=== PATIENT | female | born 1945 | race Caucasian/White ===

== ENCOUNTER 2018-01-01 13:01 | Emergency (ER) | payer SELFPAY ==
--- NOTE | 2018-01-01 13:54 | UC ---
Complaint Female HPI - HPI Summary HPI Summary: ONSET OF URINARY PRESSURE, FREQUENCY AND HEMATURIA YESTERDAY. NO FEVER, NAUSEA OR LOW BACK PAIN. - History Of Current Complaint Chief Complaint: [facility]CG[facility] Stated Complaint: URINARY ISSUE Time Seen by Provider: 01/01/18 13:22 Hx Obtained From: Patient Onset/Duration: Gradual Onset, Lasting Days, Still Present Timing: Constant Severity Initially: Moderate Severity Currently: Moderate Pain Intensity: 2 Pain Scale Used: 0-10 Numeric Character: Burning Aggravating Factor(s): Urination Alleviating Factor(s): Nothing Associated Signs And Symptoms: Negative: Fever, Back Pain, Vaginal Discharge, Nausea - Allergies/Home Medications Allergies/Adverse Reactions: Allergies Allergy/AdvReac Type Severity Reaction Status Date / Time Penicillins Allergy See Comment Verified 01/01/18 13:21 Home Medications: Home Medications Aspirin TAB* [Aspirin 325 MG TAB*] 325 mg PO DAILY 01/01/18 [History Confirmed 01/01/18] PMH/Surg Hx/FS Hx/Imm Hx Previously Healthy: Yes - Surgical History Surgical History: Yes Surgery Procedure, Year, and Place: barthalon cyst removed - Family History Known Family History: Negative: Hypertension - Social History Alcohol Use: Occasionally Substance Use Type: None Smoking Status (MU): Former Smoker Review of Systems Constitutional: Negative Respiratory: Negative Cardiovascular: Negative Gastrointestinal: Negative Genitourinary: Dysuria, Hematuria, Frequency, Urgency All Other Systems Reviewed And Are Negative: Yes Physical Exam Triage Information Reviewed: Yes Appearance: Well-Appearing, No Pain Distress, Well-Nourished Vital Signs: Initial Vital Signs Temp 98.6 F 01/01/18 13:18 Pulse 65 01/01/18 13:18 Resp 18 01/01/18 13:18 BP 168/68 01/01/18 13:18 Pulse Ox 100 01/01/18 13:18 Vital Signs Reviewed: Yes Eyes: Positive: Conjunctiva Clear ENT: Positive: Hearing grossly normal Neck: Positive: Supple Respiratory: Positive: No respiratory distress, No accessory muscle use Cardiovascular: Positive: Pulses Normal Abdomen Description: Positive: Nontender, Soft. Negative: CVA Tenderness (R), CVA Tenderness (L), Distended, Guarding Musculoskeletal: Positive: No Edema Neurological: Positive: Alert Psychological: Positive: Age Appropriate Behavior Skin: Negative: rashes Diagnostics - Laboratory Diagnostic Studies Completed/Ordered: URINE DIP SP.GR. 1.005, 3+ BLOOD, 2+ PROTEIN, 1+ LEUKS Complaint Female Dx - Differential Dx/Diagnosis Provider Diagnoses: UTI Discharge - Sign-Out/Discharge Documenting (check all that apply): Discharge/Admit/Transfer - Discharge Plan Condition: Stable Disposition: HOME Prescriptions: Sulfamethox/Trimethoprim DS* [Bactrim DS 800/160 TAB*] 1 tab PO BID #10 tab Patient Education Materials: Urinary Tract Infection in Women (ED) Referrals: No Primary Care Phys,NOPCP [Primary Care Provider] - Additional Instructions: CALL THE NUMBER BELOW FOR ASSISTANCE IN ESTABLISHING WITH A PCP An additional resource available to assist in finding the appropriate physician for your health care needs is [facility] ([facility]). You may contact them by calling [phone]. - Billing Disposition and Condition Condition: STABLE Disposition: Home
--- NOTE | 2018-01-03 15:35 | UC ---
- Progress Note Progress Note: please notify patient no UTI stop antibiotic see primary care if still symptomatic Discharge - Sign-Out/Discharge Documenting (check all that apply): Post-Discharge Follow Up - Discharge Plan Condition: Stable Disposition: HOME Prescriptions: Sulfamethox/Trimethoprim DS* [Bactrim DS 800/160 TAB*] 1 tab PO BID #10 tab Patient Education Materials: Urinary Tract Infection in Women (ED) Referrals: No Primary Care Phys,NOPCP [Primary Care Provider] - Additional Instructions: CALL THE NUMBER BELOW FOR ASSISTANCE IN ESTABLISHING WITH A PCP An additional resource available to assist in finding the appropriate physician for your health care needs is [facility] ([facility]). You may contact them by calling [phone]. - Billing Disposition and Condition Condition: STABLE Disposition: Home
== END 2018-01-01 13:59 | disposition home or self-care (01) ==
LOC: UCEAST 13:01
DX: N39.0 Urinary tract infection, site not specified (principal); R31.9 Hematuria, unspecified; Z88.0 Allergy status to penicillin; Z87.891 Personal history of nicotine dependence
CPT/HCPCS: 81003; 87086; 99202; G0463

== ENCOUNTER 2023-10-19 09:25 | Inpatient (IN) ==
[2023-10-19] MEDS: HYDROcodone/ACETAMIN 5/325 mg TAB PO PRN (20:52)
[2023-10-20] MEDS: Enoxaparin 40 MG/0.4 ML SYR SUBCUT SCH (08:46)
[2023-10-21 05:45] LABS: ABS Eosinophils 0.1 10^3/uL (0.0-0.5); ABS Lymphocytes 1.1 10^3/uL (1.0-4.8); ABS Monocytes 0.5 10^3/uL (0.0-0.9); ABS Neutrophils 4.1 10^3/uL (1.5-7.6); ABS Nucleated RBC 0.01 10^3/ul; Eosinophil % 1.9 %; Hematocrit 24.9 % (35-45); Hemoglobin 8.4 g/dL (11.5-14.3); Lymphocyte % 19.1 %; Mean Corpuscular Hemoglobin 29.2 pg (27-33); Mean Corpuscular Hgb Conc 33.8 g/dL (31-36); Mean Corpuscular Volume 86.3 fL (80-97); Mean Platelet Volume 6.2 fL (7.5-11.2); Nucleated Red Blood Cells % 0.1 %/100WBC (0.0-0.8); Platelet Count 474 10^3/uL (150-450); Red Blood Count 2.89 10^6/uL (3.63-4.92); Red Cell Distribution Width 15.2 % (12-17); White Blood Count 5.8 10^3/uL (3.8-11.8)
[2023-10-22 06:52] LABS: ABS Eosinophils 0.2 10^3/uL (0.0-0.5); ABS Lymphocytes 1.3 10^3/uL (1.0-4.8); ABS Monocytes 0.6 10^3/uL (0.0-0.9); ABS Nucleated RBC 0.01 10^3/ul; Eosinophil % 2.1 %; Hematocrit 25.6 % (35-45); Hemoglobin 8.7 g/dL (11.5-14.3); Lymphocyte % 18.3 %; Mean Corpuscular Hemoglobin 29.1 pg (27-33); Mean Corpuscular Volume 85.7 fL (80-97); Nucleated Red Blood Cells % 0.2 %/100WBC (0.0-0.8); Platelet Count 483 10^3/uL (150-450); Red Blood Count 2.99 10^6/uL (3.63-4.92); Red Cell Distribution Width 15.3 % (12-17); White Blood Count 7.1 10^3/uL (3.8-11.8)
[2023-10-22 07:57] LABS: Albumin 3.1 g/dL (3.2-5.2); Albumin/Globulin Ratio 1.1 (1-3); Calcium 8.6 mg/dL (8.6-10.3); Creatinine, Serum 0.64 mg/dL (0.51-0.95); Globulin 2.9 g/dL (2-4); Potassium 3.9 mmol/L (3.5-5.0); Total Bilirubin 0.7 mg/dL (0.2-1.0)
[2023-10-23] MEDS: Senna TAB 8.6 mg TAB PO PRN (20:21)
[2023-10-24] MEDS: HYDROcodone/ACETAMIN 5/325 mg TAB PO PRN (10:12)
[2023-10-26] MEDS: Magnesium Hydroxide LIQ 30 ML UDC PO PRN (16:31)
[2023-10-29 06:44] LABS: ABS Eosinophils 0.1 10^3/uL (0.0-0.5); ABS Lymphocytes 1.1 10^3/uL (1.0-4.8); ABS Monocytes 0.5 10^3/uL (0.0-0.9); ABS Neutrophils 2.2 10^3/uL (1.5-7.6); Eosinophil % 3.2 %; Hematocrit 28.5 % (35-45); Hemoglobin 9.5 g/dL (11.5-14.3); Lymphocyte % 27.9 %; Mean Corpuscular Hemoglobin 28.8 pg (27-33); Mean Corpuscular Hgb Conc 33.3 g/dL (31-36); Mean Corpuscular Volume 86.4 fL (80-97); Mean Platelet Volume 6.1 fL (7.5-11.2); Nucleated Red Blood Cells % 0.1 %/100WBC (0.0-0.8); Platelet Count 489 10^3/uL (150-450); Red Blood Count 3.29 10^6/uL (3.63-4.92); White Blood Count 4.1 10^3/uL (3.8-11.8)
[2023-10-29 08:00] LABS: Albumin 3.2 g/dL (3.2-5.2); Albumin/Globulin Ratio 1.1 (1-3); Calcium 8.7 mg/dL (8.6-10.3); Creatinine, Serum 0.72 mg/dL (0.51-0.95); Globulin 2.8 g/dL (2-4); Potassium 4.6 mmol/L (3.5-5.0); Total Bilirubin 0.4 mg/dL (0.2-1.0); eGFR CKD-EPI 86.1 (>60)
[2023-11-05 07:00] LABS: ABS Eosinophils 0.1 10^3/uL (0.0-0.5); ABS Lymphocytes 1.3 10^3/uL (1.0-4.8); ABS Monocytes 0.4 10^3/uL (0.0-0.9); ABS Neutrophils 1.6 10^3/uL (1.5-7.6); ABS Nucleated RBC 0.01 10^3/ul; Eosinophil % 2.3 %; Hematocrit 30.6 % (35-45); Hemoglobin 10.3 g/dL (11.5-14.3); Lymphocyte % 37.8 %; Mean Corpuscular Hemoglobin 29.1 pg (27-33); Mean Corpuscular Hgb Conc 33.8 g/dL (31-36); Mean Corpuscular Volume 85.9 fL (80-97); Mean Platelet Volume 6.4 fL (7.5-11.2); Nucleated Red Blood Cells % 0.3 %/100WBC (0.0-0.8); Platelet Count 300 10^3/uL (150-450); Red Blood Count 3.55 10^6/uL (3.63-4.92); Red Cell Distribution Width 15.4 % (12-17); White Blood Count 3.5 10^3/uL (3.8-11.8)
[2023-11-05 07:50] LABS: Albumin 3.5 g/dL (3.2-5.2); Albumin/Globulin Ratio 1.3 (1-3); Calcium 9.1 mg/dL (8.6-10.3); Creatinine, Serum 0.76 mg/dL (0.51-0.95); Globulin 2.7 g/dL (2-4); Potassium 4.5 mmol/L (3.5-5.0); Total Bilirubin 0.4 mg/dL (0.2-1.0); Total Protein 6.2 g/dL (6.4-8.9); eGFR CKD-EPI 80.7 (>60)
[2023-11-06 09:53] VITALS: BP 135/73
== END 2023-11-06 14:30 | disposition home or self-care (01) | DRG 860 ==
LOC: PMRU 12:27
PROVIDERS: ADMIT Physical Medicine & Rehabilitation; ATTEND Physical Medicine & Rehabilitation

== ENCOUNTER 2023-11-29 15:05 | Inpatient (IN) ==
[2023-11-29 16:12] LABS: ABS Eosinophils 0.1 10^3/uL (0.0-0.5); ABS Lymphocytes 0.9 10^3/uL (1.0-4.8); ABS Monocytes 0.4 10^3/uL (0.0-0.9); ABS Neutrophils 4.1 10^3/uL (1.5-7.6); ABS Nucleated RBC 0.01 10^3/ul; Eosinophil % 1.3 %; Hematocrit 32.2 % (35-45); Hemoglobin 10.6 g/dL (11.5-14.3); Lymphocyte % 17.1 %; Mean Corpuscular Hemoglobin 27.6 pg (27-33); Mean Corpuscular Volume 83.8 fL (80-97); Mean Platelet Volume 6.6 fL (7.5-11.2); Nucleated Red Blood Cells % 0.2 %/100WBC (0.0-0.8); Platelet Count 373 10^3/uL (150-450); Red Blood Count 3.85 10^6/uL (3.63-4.92); Red Cell Distribution Width 14.9 % (12-17); White Blood Count 5.5 10^3/uL (3.8-11.8)
[2023-11-29 17:25] LABS: Albumin 3.5 g/dL (3.2-5.2); Albumin/Globulin Ratio 1.1 (1-3); Calcium 9.1 mg/dL (8.6-10.3); Creatinine, Serum 0.8 mg/dL (0.51-0.95); Globulin 3.1 g/dL (2-4); Potassium 3.8 mmol/L (3.5-5.0); Total Bilirubin 0.4 mg/dL (0.2-1.0); Total Protein 6.6 g/dL (6.4-8.9); eGFR CKD-EPI 75.8 (>60)
[2023-11-29] MEDS: hydrALAZINE 20 mg/ml 1 ML Vial IV IV SLOW PU ONE (20:34)
[2023-11-29] MEDS: Labetalol IV 5 MG/ML 20 ml VIAL IV PUSH ONE ×2 (21:31→22:52)
[2023-11-30] MEDS: Labetalol IV 5 MG/ML 20 ml VIAL IV PUSH ONE
[2023-11-30] MEDS: niCARdipine 0.1MG/ML IVPREMIX 20 MG/200 ML BAG IV SCH (01:04)
[2023-11-30 01:43] LABS: High Sensitivity Troponin 1 Hr 12 pg/mL (<15)
[2023-11-30 05:13] LABS: ABS Eosinophils 0.1 10^3/uL (0.0-0.5); ABS Lymphocytes 1.2 10^3/uL (1.0-4.8); ABS Monocytes 0.4 10^3/uL (0.0-0.9); ABS Neutrophils 3.7 10^3/uL (1.5-7.6); ABS Nucleated RBC 0.01 10^3/ul; Hematocrit 31.5 % (35-45); Hemoglobin 10.5 g/dL (11.5-14.3); Lymphocyte % 22.2 %; Mean Corpuscular Hemoglobin 27.7 pg (27-33); Mean Corpuscular Hgb Conc 33.3 g/dL (31-36); Mean Corpuscular Volume 83.3 fL (80-97); Mean Platelet Volume 6.5 fL (7.5-11.2); Nucleated Red Blood Cells % 0.2 %/100WBC (0.0-0.8); Platelet Count 362 10^3/uL (150-450); Red Blood Count 3.78 10^6/uL (3.63-4.92); Red Cell Distribution Width 14.6 % (12-17); White Blood Count 5.4 10^3/uL (3.8-11.8)
[2023-11-30 05:45] LABS: Calcium 9.1 mg/dL (8.6-10.3); Creatinine, Serum 0.61 mg/dL (0.51-0.95); Magnesium 1.7 mg/dL (1.9-2.7); Potassium 3.8 mmol/L (3.5-5.0)
[2023-11-30 06:15] LABS: Urine Appearance Clear; Urine Bilirubin Negative (Negative); Urine Blood Negative (Negative); Urine Color Colorless; Urine Glucose Negative (Negative); Urine Ketones 1+ (Negative); Urine Nitrite Negative (Negative); Urine Protein Negative (Negative); Urine Specific Gravity 1.008 (1.002-1.030); Urine Urobilinogen Negative (Negative)
[2023-11-30] MEDS: Magnesium Sulfate 2 gm BAG 2 GM/50 ML BAG IVPB ONE (07:24)
[2023-11-30] MEDS: Enoxaparin 40 MG/0.4 ML SYR SUBCUT SCH (07:44)
[2023-11-30] MEDS ORDERED: Senna TAB 8.6 mg TAB PO PRN (10:22)
[2023-11-30] MEDS: Ondansetron 4 mg VIAL 2 MG/ML 2 ml VIAL IV ONE (10:47)
[2023-11-30] MEDS: Labetalol IV 5 MG/ML 20 ml VIAL IV PUSH PRN (13:35)
[2023-11-30] MEDS ORDERED: Labetalol IV 5 MG/ML 20 ml VIAL IV PUSH PRN (18:02)
[2023-12-01 04:48] LABS: ABS Eosinophils 0.1 10^3/uL (0.0-0.5); ABS Lymphocytes 1.5 10^3/uL (1.0-4.8); ABS Monocytes 0.5 10^3/uL (0.0-0.9); ABS Neutrophils 3.1 10^3/uL (1.5-7.6); ABS Nucleated RBC 0.01 10^3/ul; Eosinophil % 1.8 %; Hemoglobin 9.9 g/dL (11.5-14.3); Lymphocyte % 28.2 %; Mean Corpuscular Hemoglobin 27.5 pg (27-33); Mean Corpuscular Hgb Conc 32.9 g/dL (31-36); Mean Corpuscular Volume 83.7 fL (80-97); Mean Platelet Volume 6.5 fL (7.5-11.2); Nucleated Red Blood Cells % 0.2 %/100WBC (0.0-0.8); Platelet Count 294 10^3/uL (150-450); Red Blood Count 3.59 10^6/uL (3.63-4.92); Red Cell Distribution Width 14.7 % (12-17); White Blood Count 5.2 10^3/uL (3.8-11.8)
[2023-12-01 05:28] LABS: Calcium 8.7 mg/dL (8.6-10.3); Creatinine, Serum 0.87 mg/dL (0.51-0.95); Potassium 3.8 mmol/L (3.5-5.0); eGFR CKD-EPI 68.6 (>60)
[2023-12-01] MEDS: Potassium Chlor 20 meq TAB.ER PO ONE (08:10)
[2023-12-01] MEDS: Labetalol IV 5 MG/ML 20 ml VIAL IV PUSH PRN (18:06)
[2023-12-02 05:50] LABS: ABS Eosinophils 0.1 10^3/uL (0.0-0.5); ABS Lymphocytes 1.6 10^3/uL (1.0-4.8); ABS Monocytes 0.6 10^3/uL (0.0-0.9); ABS Neutrophils 2.8 10^3/uL (1.5-7.6); ABS Nucleated RBC 0.01 10^3/ul; Eosinophil % 1.9 %; Hematocrit 30.5 % (35-45); Hemoglobin 10.3 g/dL (11.5-14.3); Lymphocyte % 31.8 %; Mean Corpuscular Hemoglobin 28.1 pg (27-33); Mean Corpuscular Hgb Conc 33.8 g/dL (31-36); Mean Corpuscular Volume 83.3 fL (80-97); Mean Platelet Volume 6.6 fL (7.5-11.2); Nucleated Red Blood Cells % 0.3 %/100WBC (0.0-0.8); Platelet Count 330 10^3/uL (150-450); Red Blood Count 3.66 10^6/uL (3.63-4.92); Red Cell Distribution Width 14.8 % (12-17); White Blood Count 5.1 10^3/uL (3.8-11.8)
[2023-12-02 06:23] LABS: Calcium 9.1 mg/dL (8.6-10.3); Creatinine, Serum 0.88 mg/dL (0.51-0.95); Potassium 4.2 mmol/L (3.5-5.0); eGFR CKD-EPI 67.6 (>60)
[2023-12-03 08:05] LABS: ABS Eosinophils 0.1 10^3/uL (0.0-0.5); ABS Lymphocytes 1.7 10^3/uL (1.0-4.8); ABS Monocytes 0.6 10^3/uL (0.0-0.9); ABS Neutrophils 2.3 10^3/uL (1.5-7.6); Eosinophil % 2.6 %; Hematocrit 32.8 % (35-45); Hemoglobin 10.7 g/dL (11.5-14.3); Lymphocyte % 35.3 %; Mean Corpuscular Hemoglobin 27.5 pg (27-33); Mean Corpuscular Hgb Conc 32.8 g/dL (31-36); Mean Corpuscular Volume 83.9 fL (80-97); Platelet Count 342 10^3/uL (150-450); Red Blood Count 3.91 10^6/uL (3.63-4.92); Red Cell Distribution Width 14.8 % (12-17); White Blood Count 4.7 10^3/uL (3.8-11.8)
[2023-12-03 09:41] LABS: Calcium 9.2 mg/dL (8.6-10.3); Creatinine, Serum 0.81 mg/dL (0.51-0.95); eGFR CKD-EPI 74.7 (>60)
[2023-12-03 10:37] LABS: Ferritin 209.6 ng/mL (11-307)
[2023-12-03 14:08] VITALS: BP 153/63
== END 2023-12-03 15:45 | disposition home health service (06) | DRG 199 ==
LOC: ED 15:05 → EDHOLD 15:05 → ICU 11-30 02:03 → MED 11-30 02:15 → SUATTDRO 11-30 09:09 → MED 12-01 10:19
PROVIDERS: ADMIT Physician Assistant Surgical; ATTEND Family Medicine